=== PATIENT | male | born 1995 | race Caucasian/White ===

== ENCOUNTER 2023-09-30 10:16 | Emergency (ER) | payer OTHER, SELFPAY ==
[2023-09-30] VITALS (7 sets, daily range): BP systolic 106–130; BP diastolic 60–79; PULSE 54–73; RESP 13–19; TEMP 36.3; O2SAT 96–98; BMI 27.4
--- NOTE | 2023-09-30 10:21 | DI.RAD.S_ITS ---
PROCEDURE: XR CHEST 1V INDICATIONS: chest pain TECHNIQUE: One view of the chest was acquired. COMPARISON: None. FINDINGS: Surgical changes and devices: None. Lungs and pleura: Low lung volumes. No dense consolidation or pleural effusion. Mediastinum: Normal heart size allowing for low lung volumes Bones and chest wall: Unremarkable IMPRESSION: Limited single view radiograph with low lung volumes. No acute abnormality. Dictated by: Nathan Martinez M.D. on 09/30/2023 at 11:00 Approved by: Nathan Martinez M.D. on 09/30/2023 at 11:01
--- NOTE | 2023-09-30 10:21 | ED.GENADULT ---
HPI - General Adult General Chief complaint: Chest Pain Stated complaint: CHEST PAINS Time Seen by Provider: 09/30/23 10:21 History of Present Illness HPI narrative: Otherwise 28-year-old gentleman, currently active duty [employer] presents with left-sided chest pain that has been present intermittently for years. He describes it as worse over the last week to week and a half starting in his left upper neck radiating across his upper chest and into his axillary area on the left side. Describes it as a sharp stabbing type pain. Breathing, moving, neck movement are all painful for him. [facility] [place] recommended Benadryl which was not effective. He notes that he had an episode of ?food poisoning? about a month and a half ago. He is vomited twice over the last 48 hours which he feels is not all that unusual for him Related Data Previous Rx's Medication Instructions Recorded dexamethasone 4 mg tablet 10 mg (2.5 x 4 mg) PO DAILY #5 tabs 09/30/23 Allergies Allergy/AdvReac Type Severity Reaction Status Date / Time No Known Drug Allergies Allergy Verified 09/30/23 10:36 Review of Systems Review of Systems Narrative: Pertinent positive and negative findings as per HPI Patient History Social History Smoking Status: Current some day smoker Exam Initial Vital Signs Initial Vital Signs: Vital Signs Pulse Rate 73 09/30/23 10:25 Pulse Oximetry 98 09/30/23 10:25 General: Healthy appearing, in no acute distress. Able to give a complete and coherent history. Well-nourished well-developed HEENT: Moist mucous membranes, normal sclera with reactive pupils, Neck: Tenderness along the left side of the neck with paraspinous and trapezius muscle spasm and with deep palpation in the area his pain has completely reproduced down the anterior chest wall and into the axilla Respiratory: Lungs are clear to auscultation, no wheezing no rales no rhonchi. Full and symmetrical air movement Cardiac: Regular rate and rhythm no murmurs no bruits Abdomen: Soft, nontender, good bowel tones, no flank pain Skin: Warm and dry, no rashes Neurologic: Grossly neurologically intact with no obvious asymmetries or abnormalities Psych: Cooperative, appropriate insight and affect Course Orders Ordered: ED Orders 09/30/23 10:21 XR chest 1V Stat EKG-12 Lead Stat 09/30/23 10:30 Complete Blood Count AUTO DIFF Stat Comprehensive Metabolic Panel Stat Lipase Stat Magnesium Stat PTT Partial Thromboplastin Zackery Stat Prothrombin Time INR Stat Troponin & CK Cardiac Panel Stat Discontinued Medications Aspirin (Aspirin 81 Mg Chew Tab) 324 mg PO NOW ONE Stop: 09/30/23 10:22 Last Admin: 09/30/23 10:48 Dose: 324 mg Documented By: CATIA Dexamethasone (Dexamethasone 4 Mg Tablet) 12 mg PO NOW ONE Stop: 09/30/23 12:47 Last Admin: 09/30/23 12:56 Dose: 12 mg Documented By: JEROME Vital Signs Vital signs: Vital Signs - 8 hr 09/30/23 10:25 09/30/23 10:30 09/30/23 10:36 Temperature 97.4 F L Pulse Rate 73 67 66 Respiratory Rate 19 18 Blood Pressure 130/79 Pulse Oximetry 98 97 98 Oxygen Delivery Method Room Air 09/30/23 10:43 09/30/23 10:43 09/30/23 11:00 Temperature Pulse Rate 64 64 Respiratory Rate 17 15 Blood Pressure 113/60 Pulse Oximetry 96 97 Oxygen Delivery Method 09/30/23 11:00 09/30/23 11:30 09/30/23 11:30 Temperature Pulse Rate 54 L Respiratory Rate 14 Blood Pressure 115/65 122/72 Pulse Oximetry 96 Oxygen Delivery Method 09/30/23 12:00 09/30/23 12:00 Temperature Pulse Rate 56 L Respiratory Rate 13 Blood Pressure 106/63 Pulse Oximetry 96 Oxygen Delivery Method Medical Decision Making Lab Data 09/30/23 10:30 09/30/23 10:30 Labs: Lab Results 09/30/23 Range/Units 10:30 WBC 5.8 (4.5-11.0) X10^3/uL RBC 5.01 (4.5-5.9) X10^6/uL Hgb 14.6 (13.5-17.5) g/dL Hct 43.3 (41-53) % MCV 86.4 (80-100) fL MCH 29.2 (26-34) PG MCHC 33.8 (30-36) % RDW 13.1 (11.6-14.8) % Plt Count 227 (150-400) X10^3/uL Neut % (Auto) 42.5 L (50-75) % Lymph % (Auto) 39.2 (25-40) % [place] % (Auto) 6.3 (3-14) % Eos % (Auto) 11.0 H (2-4) % Baso % (Auto) 1.0 (0-2) % Neut # (Auto) 2500 (4944-0105) /uL Lymph # (Auto) 2300 (9533-2823) /uL [place] # (Auto) 400 (0-900) /uL Eos # (Auto) 600 H (0-450) /uL Baso # (Auto) 100 (0-100) /uL PT 11.1 (9.4-12.5) SECONDS INR 1.0 (0.9-1.3) APTT 34 (25.1-36.5) SECONDS Sodium 140 (137-145) mmol/L Potassium 4.5 (3.4-5.1) mmol/L Chloride 107 (98-107) mmol/L Carbon Dioxide 25 (22-32) mmol/L BUN 14 (9-20) mg/dL Creatinine 0.72 (0.66-1.25) mg/dL Estimated GFR > 60 (>60) mL/min BUN/Creatinine Ratio 19.4 (6-22) Glucose 100 (70-100) mg/dL Calcium 8.5 (8.4-10.2) mg/dL Magnesium 1.8 (1.6-2.3) mg/dL Total Bilirubin 0.4 (0.2-1.3) mg/dL AST 33 (17-59) IU/L ALT 40 (<50) IU/L Alkaline Phosphatase 72 (38-126) U/L Total Creatine Kinase 176 H (55-170) U/L Troponin I < 0.012 (0.01-0.034) ng/mL Total Protein 7.4 (6.3-8.2) g/dL Albumin 4.4 (3.5-5.0) g/dL Globulin 3.0 (1.7-4.1) g/dL Albumin/Globulin Ratio 1.5 (1.0-2.8) Lipase 72 (23-300) U/L MDM Narrative Medical decision making narrative: CC: Left-sided chest pain for years Data collected from: patient Social determinants of health that may influence the patients condition: Active duty [employer] [place] Differential considered: Musculoskeletal versus pleuritic pain. Neoplastic process continuing to cause pain Exam documented above, pertinent findings include: Pain and muscle spasm along the left cervical spine and into the left trapezius with reproducible pain noticed by palpating in this area. No shoulder joint abnormalities. No skin changes. Pulmonary and cardiac exam of the are otherwise unremarkable Lab Test results independently reviewed as above. Pertinent findings: CBC is unremarkable Chemistries are reassuring Lipase is within normal limits Troponin is undetectable Independently reviewed EKG: Sinus rhythm at a rate of 62, normal intervals, normal axis. No acute ischemic changes Imaging studies independently reviewed: Chest x-ray is entirely unremarkable Treatments: Dexamethasone Discussion: 28-year-old gentleman with left-sided radicular neck pain radiating into the upper chest and left axilla. We will treat him with 3 days of dexamethasone, discuss ibuprofen and Tylenol. Ice to the neck. He is given 3 days off work and I asked him to [facility] [place] We did discuss the possibility that he may need to see his primary care physician, may end up with an MRI of his neck and may end up talking to a spine or neurosurgeon. He may also benefit from physical therapy. Questions are answered he is safe for discharge Discharge Plan Departure Patient Disposition: Home Clinical Impression: Cervical radicular pain Instructions: DI for Cervical Radiculopathy Activity Restrictions/Additional Instructions: Thank you for coming in today I suspect that the majority of your left-sided chest pain is actually pain radiating down from muscles that are being pinched as they are coming out the left side of your neck. You have quite a bit of muscle spasm on the left side of your neck and into the trapezius muscle Your workup today does not suggest any significant heart or lung disease. There was no evidence of a heart attack or infection. For the radicular pain, I am going to suggest 3 days of dexamethasone, you have been given the 1st dose in the emergency department. Prescription for the 2nd 2 doses are at [facility] in [place]. You may find that icing the left side of your neck is helpful. Using 400 mg of ibuprofen (2 [id number] pills) and 1 Tylenol every 6 hours can be very helpful in controlling pain. You likely are going to need follow up with your primary care physician. You may benefit from physical therapy, if the pain continues you may need advanced imaging such as an MRI to help guide the rest of your workup. If you find that you are getting worse or develop any new symptoms, please feel free to return to the emergency department for further evaluation. Prescriptions: New dexamethasone 4 mg tablet 10 mg PO DAILY Qty: 5 0RF Stand Alone Forms: Patient Portal/API, Work Release Note
[2023-09-30 10:42] LABS: Add Manual Diff / Slide Review NO; Basophils Absolute Auto 100 /uL (0-100); Eosinophils Absolute Auto 600 /uL (0-450); Hematocrit 43.3 % (41-53); Hemoglobin 14.6 g/dL (13.5-17.5); Lymphocytes Absolute Auto 2300 /uL (1100-4500); Lymphocytes Percent Auto 39.2 % (25-40); Mean Corpuscular HGB Conc 33.8 % (30-36); Mean Corpuscular Hemoglobin 29.2 PG (26-34); Mean Corpuscular Volume 86.4 fL (80-100); Monocytes Absolute Auto 400 /uL (0-900); Monocytes Percent Auto 6.3 % (3-14); Neutrophils Absolute Auto 2500 /uL (1500-7000); Neutrophils Percent Auto 42.5 % (50-75); Platelet Count 227 X10^3/uL (150-400); Red Blood Cell Count 5.01 X10^6/uL (4.5-5.9); Red Cell Distribution Width 13.1 % (11.6-14.8); White Blood Cell Count 5.8 X10^3/uL (4.5-11.0)
[2023-09-30] MEDS: ASPIRIN 81 MG CHEW TAB 324 MG PO (10:48)
[2023-09-30 10:58] LABS: Prothrombin Time 11.1 SECONDS (9.4-12.5)
[2023-09-30 11:01] LABS: PTT Partial Thromboplastin Tim 34 SECONDS (25.1-36.5)
[2023-09-30 11:06] LABS: Alanine Aminotransferase 40 IU/L (<50); Albumin 4.4 g/dL (3.5-5.0); Albumin Globulin Ratio 1.5 (1.0-2.8); Alkaline Phosphatase 72 U/L (38-126); Aspartate Aminotransferase 33 IU/L (17-59); BUN Creatinine Ratio 19.4 (6-22); Bilirubin Total 0.4 mg/dL (0.2-1.3); Blood Urea Nitrogen 14 mg/dL (9-20); Calcium 8.5 mg/dL (8.4-10.2); Carbon Dioxide 25 mmol/L (22-32); Chloride 107 mmol/L (98-107); Creatine Kinase 176 U/L (55-170); Estimated Glomerular Filt Rate > 60 mL/min (>60); Glucose 100 mg/dL (70-100); HEMOLYSIS 23 (0-50); Lipase 72 U/L (23-300); Magnesium 1.8 mg/dL (1.6-2.3); Potassium 4.5 mmol/L (3.4-5.1); Sodium 140 mmol/L (137-145); Total Protein 7.4 g/dL (6.3-8.2)
[2023-09-30 11:17] LABS: Troponin I < 0.012 ng/mL (0.01-0.034)
[2023-09-30] MEDS: dexAMETHasone 4 MG TABLET 12 MG PO (12:56)
== END 2023-09-30 12:58 | disposition home or self-care (01) ==
PROVIDERS: Emergency Provider Emergency Medicine
DX: M54.12 Radiculopathy, cervical region (principal); R07.9 Chest pain, unspecified
CPT/HCPCS: 36415; 71045; 80053; 82550; 83690; 83735; 84484; 85025; 85610; 85730; 93005; 99284